=== PATIENT | male | born 1970 | race Caucasian/White ===

== ENCOUNTER 2016-09-09 07:36 | Emergency (ER) | payer OTHER ==
[2016-09-09] MEDS ORDERED: PROPARACAINE HCL 0.5% OP SOLN 15 ML BTL ONE (07:43)
[2016-09-09 07:44] VITALS: TEMP 37.2
[2016-09-09] MEDS ORDERED: CIPROFLOXACIN HCL 0.3% OP SOLN 2.5 ML BTL OP STA (08:09)
[2016-09-09] MEDS ORDERED: OXYCODONE/ACETAMINOPHEN 5-325 TAB PO ONE (08:15)
--- NOTE | 2016-09-09 08:19 | EMERGENCY ROOM VISIT NOTE ---
History Report prepared by Cullen: Arthur Penn Under the Supervision of: Dr. Donny Bermeo D.O. 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 He notes he woke with burning pain in his eyes bilaterally, and has been unable to open his eyes. 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 He has not had a recent cold or illness. He states his eyes have been tearing, and he has been using a warm compress on his eyes. He notes his pain is worsened with lights, and relieved with darkness. Source of History: patient Onset: about 4 hours ago Position: eye (bilateral) Quality: burning Timing: other (episode) Modifying Factors (Worsening): other (light) Modifying Factors (Relieving): other (darkness) Review of Systems See HPI for pertinent positives & negatives. A total of 10 systems reviewed and were otherwise negative. Family History No pertinent family history stated. Social History Smoking Status: Never Smoker Marital Status: Housing Status: lives with significant other Current/Historical Medications Scheduled PRN Oxycodone/Acetaminophen 5MG/325MG (Percocet 5MG/325MG), 1 TAB PO Q6H PRN for Pain Allergies Coded Allergies: No Known Allergies (Unverified , 09/09/16) Physical Exam Vital Signs Date Time Temp Pulse Resp B/P Pulse Ox O2 Delivery O2 Flow Rate FiO2 09/09/16 08:31 85 16 153/94 98 09/09/16 07:44 37.2 86 20 167/105 96 Room Air Physical Exam CONSTITUTIONAL/VITAL SIGNS: Reviewed / noted above. GENERAL: Non-toxic in appearance. INTEGUMENTARY: Warm, dry, and [place]. HEAD: Normocephalic. EYES: without scleral icterus or trauma. The patient has some photosensitivity and difficulty opening both eyes. There is a small amount of discharge noted in both eyes. There is bilateral conjunctival injection. The anterior chambers clear. The eyes were evaluated both with direct visualization as well as slit lamp exam. No foreign bodies are noted under the eyelids. There is minimal punctate fluorescein uptake under the highest magnification. X-ray of the motion is intact. There is no iritis. The patient's symptoms did resolve after proparacaine instillation to the eyes. ENT/OROPHARYNX: clear and moist. LYMPHADENOPATHY/NECK: Is supple without lymphadenopathy or meningismus. RESPIRATORY: Lungs clear and equal. CARDIOVASCULAR: Regular rate and rhythm. GI/ABDOMEN: Soft and nontender. No organomegaly or pulsatile mass. No rebound or guarding. Normal bowel sounds. EXTREMITIES: Warm and well perfused. BACK: No CVA tenderness. NEUROLOGICAL: Intact without focal deficits. PSYCHIATRIC: normal affect. MUSCULOSKELETAL: Normally developed with good muscle tone. TRIAGE NURSING DOCUMENTATION REVIEWED. Medical Decision & Procedures Medications Administered Medications (Trade) Dose Ordered Sig/Brynn Route Start Time Stop Time Status Last Admin Dose Admin Ciprofloxacin HCl (Ciprofloxacin 0.3% Op Soln) 1 drops NOW STAT OP 09/09/16 08:09 09/09/16 08:14 DC 09/09/16 08:33 1 DROPS Oxycodone/ Acetaminophen (Percocet 5-325mg Tab) 1 tab NOW ONCE PO 09/09/16 08:15 09/09/16 08:16 DC 09/09/16 08:33 1 TAB ED Course 0751: Previous medical records were reviewed. The patient was evaluated in room B7. A complete history and physical examination was performed. 0809: Ordered Ciprofloxacin HCl 1 drops OP. 0815: Ordered Oxycodone/Acetaminophen 1 tab PO. 0820: On reevaluation, the patient is doing well. I discussed the results and findings with the patient. He verbalized agreement of the treatment plan. The patient was discharged home. Medical Decision Differential includes conjunctivitis, viral versus bacterial, foreign body, acute angle-closure glaucoma, trauma. The patient's evaluation symptoms are suggestive of either a viral conjunctivitis or a bilateral ocular exposure. The patient does not wear contacts. He denies any specific exposure to his eyes. He will be placed on Ciloxan antibiotic eyedrops as well as Percocet for pain. Impression Primary Impression: Conjunctivitis of both eyes Scribe Attestation The scribe's documentation has been prepared under my direction and personally reviewed by me in its entirety. I confirm that the note above accurately reflects all work, treatment, procedures, and medical decision making performed by me. Departure Information Dispostion Home / Self-Care Prescriptions Oxycodone/Acetaminophen 5MG/325MG (PERCOCET 5MG/325MG) Tab 1 TAB PO Q6H Y for Pain, #20 TAB Prov: Donny Bermeo D.O. 09/09/16 Referrals Denny Dubois D.O. (PCP) Ok Garcia D.O. Patient Instructions Conjunctivitis, My [facility] Additional Instructions Ciloxan eyedrops: 1 drop to each eye every 2-3 hours while awake. Percocet as prescribed. No driving within 6 hours of use. Do not take additional Tylenol while taking Percocet. If symptoms do not resolve within 24-48 hours, follow up with an electronic security specialist. Dr. Garcia listed.
[2016-09-09] MEDS ORDERED: OXYC-57 PO (08:20)
[2016-09-09 08:31] VITALS: BP 153/94; PULSE 85; O2SAT 98
[2017-02-28] MEDS ORDERED: DXY100 PO (13:04)
[2017-02-28] MEDS ORDERED: NRN600 PO (13:04)
[2017-02-28] MEDS ORDERED: LCTX PO (13:04)
[2017-02-28] MEDS ORDERED: THM100 PO (13:04)
[2017-02-28] MEDS ORDERED: FLV400 PO (13:04)
== END 2016-09-09 08:35 | disposition home or self-care (01) ==
LOC: C.EDB 07:38
DX: H10.9 Unspecified conjunctivitis (principal)

== ENCOUNTER 2017-02-25 22:23 | Inpatient (IN) | payer OTHER ==
[~2017-02-25] VITALS: Ht 190.5 cm; Wt 69.8 kg
[~2017-02-25 22:23] MED LIST: OXYC-57 PO
--- NOTE | 2017-02-25 23:59 | EMERGENCY ROOM VISIT NOTE ---
History Report prepared by Cullen: Dmitry Brower Under the Supervision of: Dr. Jennifer Fay D.O. First contact with patient: 23:31 Chief Complaint: OTHER COMPLAINT Stated Complaint: BOTH LEGS FROM KNEES DOWN NO FEELING History of Present Illness The patient is a 46 year old male who presents to the Emergency Room with complaints of worsening intermittent pain and numbness from his knees to his ankles, and he states that it feels like pins and needles. The patient currently rates his discomfort as a 6/10 in severity. The patient states that he has had this pain for the past two years, though today it was worse, and he states that he always has some mild pain in his legs. He denies any pain or numbness in his feet. The patient states that the pain is worsened with standing. The patient states that the pain only lasts a couple of minutes at a time, and then it goes to baseline. He states that it is difficult to walk, though he has never fallen before. He denies any back pain, and he states that he currently has a mild headache. 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 The patient states that he does not feel that his muscles are wasting away. He states that he drinks a few beers per day, and he uses chewing tobacco. Additionally, he states that he does not have any pertinent family history that he knows of. Source of History: patient Onset: earlier today Position: leg (bilateral) Symptom Intensity: 6/10 Quality: numbness, other (pains and needles) Timing: intermittent Modifying Factors (Worsening): other (standing) Modifying Factors (Relieving): other (relaxing) Associated Symptoms: + headache, No back pain Review of Systems See HPI for pertinent positives & negatives. A total of 10 systems reviewed and were otherwise negative. Past Medical & Surgical Medical Problems: (1) Lower extremity weakness (2) Lyme disease (3) Neuropathy (4) No Known Active Medical Problems Family History Patient reports no known family medical history. Social History Smoking Status: Former Smoker Smokeless Tobacco Use: Yes Marital Status: Housing Status: lives with significant other Occupation Status: employed Current/Historical Medications No Active Prescriptions or Reported Meds Allergies Coded Allergies: No Known Allergies (Unverified , 7/25/17) Physical Exam Vital Signs Date Time Temp Pulse Resp B/P (MAP) Pulse Ox O2 Delivery O2 Flow Rate FiO2 02/26/17 02:55 71 18 142/88 97 Room Air 02/26/17 02:10 77 18 134/93 97 Room Air 02/26/17 00:21 71 18 137/83 97 Room Air 02/25/17 22:35 36.8 86 20 149/87 97 Room Air Physical Exam HEENT: Head - normocephalic and atraumatic. Pupils are equal, round, and reactive to light. Extraocular eye muscles are intact and sclera are anicteric. Ears - bilaterally patent canals with noninjected tympanic membranes and no evidence of hemotympanum. Nose - moist nasal mucosa without discharge. Mouth - moist buccal mucosa. Oropharynx is nonerythematous and there is no tonsillar exudate or edema noted. Neck: Supple; no JVD, nuchal rigidity, cervical lymphadenopathy, or auscultated bruits. Heart: Regular rate and rhythm. There is a normal S1 and S2 with no murmurs, clicks, or gallops appreciated. Lungs: Clear to auscultation bilaterally with no wheezes, rales, or rhonchi. Abdomen: Soft, completely nontender, nondistended, with good bowel sounds. There are no palpable pulsatile masses or hepatosplenomegaly. There is no guarding, rigidity, or rebound noted. Extremities: No evidence of cyanosis, clubbing, or edema. There are easily palpable peripheral pulses. Neuro: 0/4 patellar reflexes. 1/4 Achilles reflexes. The patient is awake and alert, oriented to day, time, and place. Muscle strength is 5/5 in all 4 extremities. The patient has equal pivot end polisher strength and equal pedal push and pull. There are no cerebellar signs. Medical Decision & Procedures ER Provider Diagnostic Interpretation: CT HEAD: As interpreted by stat rad No ICH, mass effect or edema. No evidence of acute cortical strokes. Visualized sinuses and mastoid air cells are clear. Laboratory Results 02/26/17 00:10 Test 02/26/17 00:10 Anion Gap 8.0 mmol/L (3-11) Est Creatinine Clear Calc Drug Dose 112.6 ml/min Estimated GFR () 122.8 Estimated GFR (Non- 106.0 BUN/Creatinine Ratio 11.3 (10-20) Calcium Level 8.7 mg/dl (8.5-10.1) Magnesium Level 2.1 mg/dl (1.8-2.4) Total Bilirubin 0.3 mg/dl (0.2-1) Direct Bilirubin 0.1 mg/dl (0-0.2) Aspartate Amino Transf (AST/SGOT) 20 U/L (15-37) Alanine Aminotransferase (ALT/SGPT) 32 U/L (12-78) Alkaline Phosphatase 83 U/L (45-117) Total Creatine Kinase 117 U/L (39-308) Total Protein 7.2 gm/dl (6.4-8.2) Albumin 3.7 gm/dl (3.4-5.0) Thyroid Stimulating Hormone (TSH) 1.580 uIu/ml (0.300-4.500) Ethyl Alcohol mg/dL 86.0 mg/dl (0-3) Lyme Disease IgG Antibody POS (NEG) Laboratory results per my review. Medications Administered Medications (Trade) Dose Ordered Sig/Brynn Route Start Time Stop Time Status Last Admin Dose Admin Ceftriaxone Sodium (Rocephin Inj) 1 gm NOW STAT IV 02/26/17 01:56 02/26/17 01:57 DC 02/26/17 02:10 1 GM Procedure Rocephin IV ED Course 2335: Past medical records reviewed. The patient was evaluated in room C3. A complete history and physical exam was performed. I asked the patient to walk. He could heel stand and toe stand, but he had significant imbalance with ambulation. The patient had an IV lock initiated and labs are drawn as above. The patient went for CT scan of the brain as described above. 0156: The Lyme testing was positive and he was treated with Rocephin Inj 1gm IV 0157: I reevaluated the patient, and he was doing well. 0206: I discussed the patient's case with Dr. Fischer, Hospitalist. He is going to evaluate the patient for further treatment. Medical Decision The patient is a 46 year old female who presents to the ED with right leg pain and numbness. Differential diagnosis includes intracranial process, alcoholic neuropathy, Guillain-Shelby syndrome, myasthenia gravis, lumbar radiculopathy, myositis, transverse myelitis. Lab results show: Lyme is positive, no leukocytosis, hemoglobin of 1.9, normal LFT and TSH, glucose 105, normal renal function, and alcohol was 86 This is a 46-year-old male patient who presents to the emergency department with a 2 year history of numbness and tingling in his legs between his knees and ankles and some pain of his knees, calves, and ankles. The patient presents to the emergency room tonight because he had an acute worsening of his symptoms over the past couple of days. As far as his chronic issue, he has no associated back pain. CT scan of the brain was unremarkable. The patient does abuse alcohol and I considered the possibility of neuropathy with in his legs. His symptoms have acutely worsened. His Lyme testing was positive. This could account for the acute worsening. I felt the patient will require IV Rocephin for positive Lyme disease with significant neurological sequelae. I discussed the case with the [facility] Hospitalist and they will evaluate him for further management. Medication Reconcilliation Current Medication List: was personally reviewed by me Blood Pressure Screening Patient's blood pressure: Elevated blood pressure It will be addressed as an inpatient Consults Time Called: [phone] Consulting Physician: Dr. Fischer, Hospitalist Returned Call: [phone] I discussed the patient's case with Dr. Fischer, Hospitalist. He is going to evaluate the patient for further treatment. Impression Primary Impression: Lyme disease Additional Impressions: Paresthesia of lower extremity Gait instability Scribe Attestation The scribe's documentation has been prepared under my direction and personally reviewed by me in its entirety. I confirm that the note above accurately reflects all work, treatment, procedures, and medical decision making performed by me. Departure Information Dispostion Being Evaluated By Hospitalist Prescriptions No Active Prescriptions or Reported Meds Referrals Denny Dubois S,Kristen.Dayanara. (PCP) Patient Instructions My [facility] Problem Qualifiers
[2017-02-26 00:31] LABS: BASO % 0.4 %; BASO ABS # 0.02 K/uL (0-0.2); COMPLETE YES; EOS % 2.2 %; HEMATOCRIT 40.4 % (42-52); IG% 0.2 %; LYMPH % 48.8 %; LYMPH ABS # 2.49 K/uL (1.2-3.4); MEAN CELL VOLUME 90.8 fL (80-100); MEAN CORPUSCULAR HEMOGLOBIN 31.2 pg (25-34); MEAN CORPUSCULAR HGB CONC 34.4 g/dl (32-36); MEAN PLATELET VOLUME 9.3 fL (7.4-10.4); MONO % 12.5 %; NEUT % 35.9 %; PLATELET COUNT 221 K/uL (130-400); RED BLOOD COUNT 4.45 M/uL (4.7-6.1)
[2017-02-26 00:54] LABS: BUN/CREATININE RATIO 11.3 (10-20); CALCIUM 8.7 mg/dl (8.5-10.1); CREATININE 0.85 mg/dl (0.60-1.40); POTASSIUM 3.6 mmol/L (3.5-5.1)
[2017-02-26 01:04] LABS: THYROID STIMULATING HORMONE 1.58 uIu/ml (0.300-4.500)
[2017-02-26 01:29] LABS: LYME DISEASE AB IGG POS (NEG); LYME DISEASE AB IGM POS (NEG)
[2017-02-26] MEDS ORDERED: CEFTRIAXONE SOD INJ 1 GM ADDVIAL IV STA (01:56)
[2017-02-26] MEDS ORDERED: POTASSIUM CHLORIDE 10 MEQ TABCR PO STA (03:51)
[2017-02-26] MEDS ORDERED: ACETAMINOPHEN 325 MG TAB PO PRN (04:00)
[2017-02-26] MEDS ORDERED: GABAPENTIN 600 MG TAB PO SCH (04:00)
[2017-02-26] MEDS ORDERED: LORAZEPAM 2 MG/ML 1 ML VIAL IV PRN (04:00)
[2017-02-26] MEDS ORDERED: IBUPROFEN 200 MG TAB PO PRN (04:00)
[2017-02-26] MEDS ORDERED: MoRPHine SULFATE 4 MG/ML 1 ML CARP\\VIAL IV PRN (04:00)
[2017-02-26] MEDS ORDERED: KETOROLAC TROMETHAMINE 30 MG/ML VIAL IV PRN (04:00)
[2017-02-26] MEDS ORDERED: ONDANSETRON INJ 2 MG/ML 2 ML VIAL IV PRN (04:00)
[2017-02-26] MEDS ORDERED: POTASSIUM CHLORIDE 10 MEQ TABCR ONE (04:07)
[2017-02-26 04:13] LABS: MAGNESIUM 2.1 mg/dl (1.8-2.4)
[2017-02-26 05:18] VITALS: BP 142/93; PULSE 75; TEMP 36.9; O2SAT 97
[2017-02-26 05:30] VITALS: BP 142/93; PULSE 75; TEMP 36.9; O2SAT 97; Ht 190.5 cm; Wt 69.8 kg
[2017-02-26] MEDS ORDERED: GABAPENTIN 1200MG LOADING DOSE PO ONE (06:00)
[2017-02-26] MEDS ORDERED: [UNRECOGNIZED DRUG - OTHER] IV ONE (06:15)
[2017-02-26] MEDS ORDERED: FOLIC ACID IV ONE (06:15)
[2017-02-26] MEDS ORDERED: THIAMINE HCL IV ONE (06:15)
[2017-02-26] MEDS ORDERED: MULTI VITAMIN INFUSION IV ONE (06:15)
--- NOTE | 2017-02-26 06:32 | HISTORY & PHYSICAL EXAMINATION ---
DATE OF ADMISSION: 02/25/2017 PRIMARY CARE DOCTOR: Dr. Dubois. (Px has not met him.) CHIEF COMPLAINT: Bilateral leg pain, numbness. HISTORY OF PRESENT ILLNESS: History from patient and family. Medical history significant for past tobacco abuse. As per patient, in the last 2 years, pain and numbness from the knees to the ankles, feels like pins and needles, no chest pain, no shortness of breath, no headache. Some pain with walking. No consultations done. Worsening discomfort last few days. Patient has had tick bites before, no previous treatments, no recent rash. Patient brought to Emergency Room. Lyme test found to be abnormal. IV Ceftriaxone given in the Emergency Room. MEDICAL HISTORY: As above. SURGERIES: Wound repair surgery. HOME MEDICATIONS: None. ALLERGIES: No known drug allergies. FAMILY HISTORY: Hypertension. PERSONAL AND SOCIAL HISTORY: Past tobacco abuse, daily alcohol intake/denies abuse. Construction business. REVIEW OF SYSTEMS: As per HPI. All other ROS negative. PHYSICAL EXAMINATION: VITAL SIGNS: Blood pressure was noted to be 149/87, pulse rate 86, RR 20, temperature 36.8, sats 97 on room air. GENERAL: Noted to be slightly anxious, no respiratory distress. SKIN: Normal color. HEENT: Partial alopecia. Rake palpebral conjunctivae. Dry mucosa. NECK: No JVD. Supple CHEST: Clear to auscultation. HEART: Regular rate and rhythm. ABDOMEN: Soft. EXTREMITIES: No edema, tenderness. NEUROLOGIC: No gross focality. LABS: Hemoglobin 13.9, hematocrit 40, white cell count 5.6, platelets 220. Sodium 141, potassium 3.5, chloride 107, CO2 20, BUN 10, creatinine 0.8, glucose was 100. ETOH level 86. Lyme test, IgG, IgM antibody positive. CT head, no acute pathology as per initial read . ASSESSMENT: 1. Worsening lower extremity pain of two years' duration likely peripheral neuropathy on basis px description ? secondary to alcohol, ? infection (? Lyme, although lower extremity involvement somewhat uncommon for Lyme neuropathy) Rule out deep venous thrombosis. 2. Abnormal Lyme test. 3. Past tobacco abuse. 4. daily ETOH intake PLAN: [facility] Neuropathy workup Neurology consult RE lower extremity numbness, pain. LE dopplers ro DVT. ID consult, abnormal Lyme. IV ceftriaxone for now for abn Lyme test. DT precautions. DVT prophylaxis with Lovenox subQ. Full code. MTDD
--- NOTE | 2017-02-26 06:54 | DIAGNOSTIC IMAGING REPORT ---
CT OF THE HEAD WITHOUT CONTRAST CLINICAL HISTORY: Lower extremity numbness. COMPARISON STUDY: No previous studies for comparison. CT DOSE: 537.48 mGy.cm TECHNIQUE: Helical axial images of the head were obtained without IV contrast. Automated exposure control was utilized for the study. A dose lowering technique was utilized adhering to the principles of ALARA. FINDINGS: No acute intracranial hemorrhage, midline shift or mass effect is present. Ventricular system is normal. The basilar cisterns are patent. There are no extra-axial collections. There are no findings to suggest acute dural sinus thrombosis or acute territorial infarct. There are no significant calvarial abnormalities. There is mild mucosal thickening of the sinuses. Mastoid air cells are clear. IMPRESSION: No acute intracranial findings. Electronically signed by: Yoshi Hollingsworth M.D. 02/26/2017 6:52 AM Dictated Date/Time: 02/26/2017 6:51 AM
--- NOTE | 2017-02-26 07:18 | DIAGNOSTIC IMAGING REPORT ---
BILATERAL LOWER EXTREMITY VENOUS DOPPLER CLINICAL HISTORY: Lower extremity numbness. COMPARISON STUDY: No previous studies for comparison. TECHNIQUE: Sonography of the deep venous system of the bilateral lower extremities was performed. Compression and augmentation were evaluated. FINDINGS: The bilateral common femoral, superficial femoral and popliteal veins were compressible. Augmentation was normal. Flow was shown within the deep calf vessels. IMPRESSION: No evidence of deep venous thrombus within the bilateral lower extremities. Electronically signed by: Yoshi Hollingsworth M.D. 02/26/2017 7:16 AM Dictated Date/Time: 02/26/2017 7:16 AM
[2017-02-26 07:34] VITALS: BP 138/88; PULSE 59; TEMP 36.8; O2SAT 98
[2017-02-26 09:49] VITALS: O2SAT 98
--- NOTE | 2017-02-26 10:16 | Medical Consult ---
Consultation Date of Consultation: Feb 26, 2017. Attending Physician: Amalia Bauman M.D. Reason for Consultation: Abn Lyme History of Present Illness Patient is a 46-year-old male who presented the emergency department with complaints of increasing numbness and pain from the knees down. The patient states that he has had numbness and pain of from his knees to his ankles bilaterally for approximately 2 years, but he feels that it has acutely worsened. The patient states that he feels that started after a trip to [place], but is uncertain as to why. He did not experience any trauma or recognize any inciting event. The patient states that the pain is worse with standing and walking, and that it is intermittent. The patient states that he has had on an off mild headache, but otherwise complains of no vision changing, hearing changes, back pain, neck pain, radiating pain, shortness of breath, nausea, vomiting, diarrhea, abdominal pain, urinary symptoms, urinary retention , or peripheral edema. Since admission, the patient did have a CT scan of the head which showed no intracranial abnormality. Venous Doppler studies of the bilateral extremities showed no DVT. White blood cell count on admission was 5.10. ESR was 2. His C-reactive protein was less than 0.29. TSH was within normal. Creatinine was 0.85. Lyme screens were positive. Western blot is pending. RPR is pending. Neurology evaluation is also pending. Past Medical/Surgical History Medical Problems: (1) Conjunctivitis of both eyes Status: Acute (2) Gait instability Status: Acute (3) Paresthesia of lower extremity Status: Acute Medical Problems: (1) Lower extremity weakness (2) Lyme disease (3) Neuropathy (4) No Known Active Medical Problems Family History Patient reports no known family medical history. Noncontributory Social History Smoking Status: Never Smoker Smokeless Tobacco Use: Yes Marital Status: Housing Status: lives with significant other Occupation Status: employed Allergies Coded Allergies: No Known Allergies (Unverified , 02/26/17) Home Medications Reported Home Medications Medications Dose Route/Sig Max Daily Dose Days Date Category No Active Prescriptions or Reported Medications Rx Current Inpatient Medications Current Inpatient Medications Medications (Trade) Dose Ordered Sig/Brynn Route Start Time Stop Time Status Last Admin Dose Admin Ceftriaxone Sodium 1 gm/ Dextrose 50 ml @ 100 mls/hr Q24H IV 02/26/17 22:00 03/07/17 21:59 Multivitamins 10 ml/Thiamine HCl 100 mg/Folic Acid 1 mg/Lactated Ringer's 1,011.2 ml @ 75 mls/hr [id number] ONCE IV 02/26/17 06:15 02/26/17 19:43 02/26/17 06:35 75 MLS/HR Thiamine HCl (Vitamin B-1 Tab) 100 mg QAM PO 02/27/17 09:00 03/29/17 08:59 Multivitamins (Flintstones Complete Tab) 1 tab QAM PO 02/27/17 09:00 03/29/17 08:59 Folic Acid (Folvite Tab) 400 mcg QAM PO 02/27/17 09:00 03/29/17 08:59 Enoxaparin Sodium (Lovenox Inj) 40 mg Q24H SQ 02/26/17 09:00 03/28/17 08:59 Acetaminophen (Tylenol Tab) 650 mg Q4H PRN PO 02/26/17 04:00 03/28/17 03:59 02/26/17 06:02 650 MG Lorazepam (Ativan Inj) PRN Dosing -Active Protocol Q1H PRN IV 02/26/17 04:00 03/28/17 03:59 Ibuprofen (Advil Tab) 400 mg Q6H PRN PO 02/26/17 04:00 03/28/17 03:59 Oxycodone/ Acetaminophen (Percocet 5-325mg Tab) 1 tab Q6H PRN PO 02/26/17 04:00 03/12/17 03:59 Ketorolac Tromethamine (Toradol Inj) 30 mg Q6H PRN IV 02/26/17 04:00 03/03/17 03:59 Morphine Sulfate (MoRPHine SULFATE INJ) 4 mg Q6H PRN IV 02/26/17 04:00 03/12/17 03:59 Ondansetron HCl (Zofran Inj) 4 mg Q6H PRN IV 02/26/17 04:00 03/28/17 03:59 Gabapentin (Neurontin Tab) 600 mg Q6H PO 02/26/17 12:00 02/26/17 18:01 Gabapentin (Neurontin Tab) 600 mg Q8H PO 02/27/17 06:00 02/27/17 22:01 Gabapentin (Neurontin Tab) 600 mg Q12H PO 02/28/17 10:00 02/28/17 22:01 Gabapentin (Neurontin Tab) 600 mg Q24H PO 03/01/17 22:00 03/01/17 22:01 Review of Systems Constitutional: No fever, No chills, No sweats, No weakness, No fatigue Eyes: No worsening of vision, No eye pain, No diplopia ENT: No hearing loss, No sore throat, No tinnitus Respiratory: No cough, No sputum, No wheezing, No shortness of breath Cardiovascular: No chest pain, No palpitations Abdomen: No pain, No nausea, No vomiting, No diarrhea Musculoskeletal: + problem reported (numbness/tingling/sharp pains from knees to feet, bilateral. No back pain, neck pain, headache), No joint pain Genitourinary - Male: + problem reported (no inguinal lymph nodes that he has noticed), No hematuria, No dysuria, No urinary frequency, No urinary retention Neurologic: + numbness/tingling (as above- nowhere else) Endocrine: No fatigue Hematologic / Lymphatic: No swollen lymph nodes Integumentary: No rash, No itch, No new/changing skin lesions, No color change Physical Exam Date Time Temp Pulse Resp B/P (MAP) Pulse Ox O2 Delivery O2 Flow Rate FiO2 02/26/17 09:49 98 Room Air 02/26/17 07:34 36.8 59 18 138/88 (105) 98 Room Air 02/26/17 05:30 36.9 75 20 142/93 97 Room Air 02/26/17 05:18 36.9 75 20 142/93 (109) 97 Room Air 02/26/17 04:38 72 18 142/88 96 02/26/17 02:55 71 18 142/88 97 Room Air 02/26/17 02:10 77 18 134/93 97 Room Air 02/26/17 00:21 71 18 137/83 97 Room Air 02/25/17 22:35 36.8 86 20 149/87 97 Room Air General Appearance: WD/WN, no apparent distress Head: normocephalic, atraumatic Eyes: normal inspection, sclerae normal ENT: hearing grossly normal Neck: supple, trachea midline Respiratory/Chest: chest non-tender, normal breath sounds, no respiratory distress, no accessory muscle use, + wheezing (very mild end expiratory wheeze right lower lobe- otherwise clear) Cardiovascular: regular rate, rhythm, no murmur Abdomen/GI: normal bowel sounds, non tender, soft, no organomegaly Back: normal inspection Extremities/Musculoskelatal: normal inspection, no calf tenderness, no pedal edema Neurologic/Psych: alert, normal mood/affect, oriented x 3 Skin: normal color, warm/dry, no rash Laboratory Results Last 24 Hours Test 02/26/17 00:10 02/26/17 06:13 White Blood Count 5.10 K/uL Red Blood Count 4.45 M/uL Hemoglobin 13.9 g/dL Hematocrit 40.4 % Mean Corpuscular Volume 90.8 fL Mean Corpuscular Hemoglobin 31.2 pg Mean Corpuscular Hemoglobin Concent 34.4 g/dl Platelet Count 221 K/uL Mean Platelet Volume 9.3 fL Neutrophils (%) (Auto) 35.9 % Lymphocytes (%) (Auto) 48.8 % Monocytes (%) (Auto) 12.5 % Eosinophils (%) (Auto) 2.2 % Basophils (%) (Auto) 0.4 % Neutrophils # (Auto) 1.83 K/uL Lymphocytes # (Auto) 2.49 K/uL Monocytes # (Auto) 0.64 K/uL Eosinophils # (Auto) 0.11 K/uL Basophils # (Auto) 0.02 K/uL RDW Standard Deviation 41.7 fL RDW Coefficient of Variation 12.5 % Immature Granulocyte % (Auto) 0.2 % Immature Granulocyte # (Auto) 0.01 K/uL Sodium Level 141 mmol/L Potassium Level 3.6 mmol/L Chloride Level 107 mmol/L Carbon Dioxide Level 26 mmol/L Anion Gap 8.0 mmol/L Blood Urea Nitrogen 10 mg/dl Creatinine 0.85 mg/dl Est Creatinine Clear Calc Drug Dose 112.6 ml/min Estimated GFR () 122.8 Estimated GFR (Non- 106.0 BUN/Creatinine Ratio 11.3 Random Glucose 105 mg/dl Calcium Level 8.7 mg/dl Magnesium Level 2.1 mg/dl Total Bilirubin 0.3 mg/dl Direct Bilirubin 0.1 mg/dl Aspartate Amino Transf (AST/SGOT) 20 U/L Alanine Aminotransferase (ALT/SGPT) 32 U/L Alkaline Phosphatase 83 U/L Total Creatine Kinase 117 U/L Total Protein 7.2 gm/dl Albumin 3.7 gm/dl Thyroid Stimulating Hormone (TSH) 1.580 uIu/ml Ethyl Alcohol mg/dL 86.0 mg/dl Lyme Disease IgG Antibody POS Lyme Disease IgM Antibody POS Prothrombin Time 11.0 SECONDS Prothromb Time International Ratio 1.0 Vitamin B12 Level 324 pg/mL Folate 21.23 ng/mL Assessment & Plan Patient with B/L Neuropathy of the lower extremities from the knees to feet along with positive Lyme screens. The patient has no other neurologic symptoms and has not had symptoms consistent with Lyme disease otherwise- therefore, not overly convinced of Lyme disease causing current symptoms, but will await further serology and Neurology's evaluation. Will also check ESR, CRP. We will follow. PROVIDER ADDENDUM: Patient examined and reviewed with MARIA DE JESUS.agree with above assessment.
[2017-02-26] MEDS: GABAPENTIN 600MG Q6H DOSE PO SCH ×2 (12:12→17:38)
[2017-02-26] MEDS: ENOXAPARIN 40 MG/0.4 ML SYR SQ SCH (12:13)
[2017-02-26 12:41] LABS: URINE APPEARANCE CLEAR (CLEAR); URINE BILIRUBIN NEG (NEG); URINE COLOR YELLOW; URINE NITRITE NEG (NEG); URINE PH 6.5 (4.5-7.5); URINE SPECIFIC GRAVITY 1.008 (1.000-1.030); UROBILINOGEN NEG (NEG); ZZUR CULT IF INDIC CLEAN CATCH NO
[2017-02-26 12:47] LABS: MANUAL MICROSCOPIC REQUIRED? NO; REVIEW REQ? NO
[2017-02-26 15:15] VITALS: BP 137/87; PULSE 66; TEMP 37.1; O2SAT 98
--- NOTE | 2017-02-26 15:25 | Progress Note ---
Internal Med Progress Note Date of Service: Feb 26, 2017. Provider Documentation: SUBJECTIVE: The patient was seen and examined Complains of bilateral leg numbness below the knees Symptoms are worse for the last few days but has been going on for >2 years Denies any other symptoms OBJECTIVE: Vital Signs-as noted below Exam: General-No distress at rest Eyes-normal ENT-normal Neck-supple Lungs-Clear to ausucltate bilaterally Heart-Regular,no murmur Abdomen-Benign,no masses,bowel sound present Extremities-No edema Neuro-AAOx3 Impaired sensation bilaterally below knees Lab data as noted below. 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 No B12 and or Folate Deficiency Appreciate ID input Will await Neurology input Still remains symptomatic Past tobacco abuse Alcohol Abuse DT precautions. DVT prophylaxis with Lovenox subQ. Full code. Vital Signs: Date Time Temp Pulse Resp B/P (MAP) Pulse Ox O2 Delivery O2 Flow Rate FiO2 02/26/17 09:49 98 Room Air 02/26/17 07:34 36.8 59 18 138/88 (105) 98 Room Air 02/26/17 05:30 36.9 75 20 142/93 97 Room Air 02/26/17 05:18 36.9 75 20 142/93 (109) 97 Room Air 02/26/17 04:38 72 18 142/88 96 02/26/17 02:55 71 18 142/88 97 Room Air 02/26/17 02:10 77 18 134/93 97 Room Air 02/26/17 00:21 71 18 137/83 97 Room Air 02/25/17 22:35 36.8 86 20 149/87 97 Room Air Lab Results: Results Past 24 Hours Test 02/26/17 00:10 02/26/17 06:13 02/26/17 12:10 Range/Units White Blood Count 5.10 4.8-10.8 K/uL Red Blood Count 4.45 4.7-6.1 M/uL Hemoglobin 13.9 14.0-18.0 g/dL Hematocrit 40.4 42-52 % Mean Corpuscular Volume 90.8 80-100 fL Mean Corpuscular Hemoglobin 31.2 25-34 pg Mean Corpuscular Hemoglobin Concent 34.4 32-36 g/dl Platelet Count 221 130-400 K/uL Mean Platelet Volume 9.3 7.4-10.4 fL Neutrophils (%) (Auto) 35.9 % Lymphocytes (%) (Auto) 48.8 % Monocytes (%) (Auto) 12.5 % Eosinophils (%) (Auto) 2.2 % Basophils (%) (Auto) 0.4 % Neutrophils # (Auto) 1.83 1.4-6.5 K/uL Lymphocytes # (Auto) 2.49 1.2-3.4 K/uL Monocytes # (Auto) 0.64 0.11-0.59 K/uL Eosinophils # (Auto) 0.11 0-0.5 K/uL Basophils # (Auto) 0.02 0-0.2 K/uL RDW Standard Deviation 41.7 36.4-46.3 fL RDW Coefficient of Variation 12.5 11.5-14.5 % Immature Granulocyte % (Auto) 0.2 % Immature Granulocyte # (Auto) 0.01 0.00-0.02 K/uL Sodium Level 141 136-145 mmol/L Potassium Level 3.6 3.5-5.1 mmol/L Chloride Level 107 98-107 mmol/L Carbon Dioxide Level 26 21-32 mmol/L Anion Gap 8.0 3-11 mmol/L Blood Urea Nitrogen 10 7-18 mg/dl Creatinine 0.85 0.60-1.40 mg/dl Est Creatinine Clear Calc Drug Dose 112.6 ml/min Estimated GFR () 122.8 Estimated GFR (Non- 106.0 BUN/Creatinine Ratio 11.3 10-20 Random Glucose 105 70-99 mg/dl Calcium Level 8.7 8.5-10.1 mg/dl Magnesium Level 2.1 1.8-2.4 mg/dl Total Bilirubin 0.3 0.2-1 mg/dl Direct Bilirubin 0.1 0-0.2 mg/dl Aspartate Amino Transf (AST/SGOT) 20 15-37 U/L Alanine Aminotransferase (ALT/SGPT) 32 12-78 U/L Alkaline Phosphatase 83 45-117 U/L Total Creatine Kinase 117 39-308 U/L Total Protein 7.2 6.4-8.2 gm/dl Albumin 3.7 3.4-5.0 gm/dl Thyroid Stimulating Hormone (TSH) 1.580 0.300-4.500 uIu/ml Ethyl Alcohol mg/dL 86.0 0-3 mg/dl Lyme Disease IgG Antibody POS NEG Lyme Disease IgM Antibody POS NEG Erythrocyte Sedimentation Rate 2 0-14 mm/hr Prothrombin Time 11.0 9.0-12.0 SECONDS Prothromb Time International Ratio 1.0 0.9-1.1 C-Reactive Protein < 0.29 0-0.29 mg/dl Vitamin B12 Level 324 211-911 pg/mL Folate 21.23 >5.38 ng/mL Urine Color YELLOW Urine Appearance CLEAR CLEAR Urine pH 6.5 4.5-7.5 Urine Specific [place] 1.008 1.000-1.030 Urine Protein NEG NEG Urine Glucose (UA) NEG NEG Urine Ketones NEG NEG Urine Occult Blood NEG NEG Urine Nitrite NEG NEG Urine Bilirubin NEG NEG Urine Urobilinogen NEG NEG Urine Leukocyte Esterase NEG NEG
--- NOTE | 2017-02-26 16:03 | Neurology Consultation ---
Neurology Consultation Date of Consultation: Feb 26, 2017. Attending Physician: Amalia Bauman M.D. Primary Care Physician: Denny Dubois D.O. Reason for Consultation: neuropathy? History of Present Illness Source: patient, spouse Poornima states for the past 2 years, pain and numbness from the knees to the ankles,feels like pins and needles, no chest pain, no shortness of breath, no headache. He is unstable with walking. 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 he has had numerous tick bites over the years. he is a 6 pack a day beer drinker for many years, and chews snuff. he has not other medical issues. denies CP, SOB, abdominal pain, headache, swallowing issues, bowel or bladder symptoms, N, V. Past Medical/Surgical History Medical Problems: (1) Conjunctivitis of both eyes Status: Acute (2) Gait instability Status: Acute (3) Paresthesia of lower extremity Status: Acute Social History Smoking Status: Former smoker Smokeless Tobacco Use: Yes Alcohol Use: heavy Drug Use: none Marital Status: Housing Status: lives with significant other Occupation Status: employed Allergies Coded Allergies: No Known Allergies (Unverified , 02/26/17) Current Inpatient Medications Current Inpatient Medications Medications (Trade) Dose Ordered Sig/Brynn Route Start Time Stop Time Status Last Admin Dose Admin Ceftriaxone Sodium 1 gm/ Dextrose 50 ml @ 100 mls/hr Q24H IV 02/26/17 22:00 03/07/17 21:59 Multivitamins 10 ml/Thiamine HCl 100 mg/Folic Acid 1 mg/Lactated Ringer's 1,011.2 ml @ 75 mls/hr [id number] ONCE IV 02/26/17 06:15 02/26/17 19:43 02/26/17 06:35 75 MLS/HR Thiamine HCl (Vitamin B-1 Tab) 100 mg QAM PO 02/27/17 09:00 03/29/17 08:59 Multivitamins (Flintstones Complete Tab) 1 tab QAM PO 02/27/17 09:00 03/29/17 08:59 Folic Acid (Folvite Tab) 400 mcg QAM PO 02/27/17 09:00 03/29/17 08:59 Enoxaparin Sodium (Lovenox Inj) 40 mg Q24H SQ 02/26/17 09:00 03/28/17 08:59 02/26/17 12:13 40 MG Acetaminophen (Tylenol Tab) 650 mg Q4H PRN PO 02/26/17 04:00 03/28/17 03:59 02/26/17 06:02 650 MG Lorazepam (Ativan Inj) PRN Dosing -Active Protocol Q1H PRN IV 02/26/17 04:00 03/28/17 03:59 Ibuprofen (Advil Tab) 400 mg Q6H PRN PO 02/26/17 04:00 03/28/17 03:59 Oxycodone/ Acetaminophen (Percocet 5-325mg Tab) 1 tab Q6H PRN PO 02/26/17 04:00 03/12/17 03:59 Ketorolac Tromethamine (Toradol Inj) 30 mg Q6H PRN IV 02/26/17 04:00 03/03/17 03:59 Morphine Sulfate (MoRPHine SULFATE INJ) 4 mg Q6H PRN IV 02/26/17 04:00 03/12/17 03:59 Ondansetron HCl (Zofran Inj) 4 mg Q6H PRN IV 02/26/17 04:00 03/28/17 03:59 Gabapentin (Neurontin Tab) 600 mg Q6H PO 02/26/17 12:00 02/26/17 18:01 02/26/17 12:12 600 MG Gabapentin (Neurontin Tab) 600 mg Q8H PO 02/27/17 06:00 02/27/17 22:01 Gabapentin (Neurontin Tab) 600 mg Q12H PO 02/28/17 10:00 02/28/17 22:01 Gabapentin (Neurontin Tab) 600 mg Q24H PO 03/01/17 22:00 03/01/17 22:01 Physical Exam Vital Signs (Past 24 Hrs): Date Time Temp Pulse Resp B/P (MAP) Pulse Ox O2 Delivery O2 Flow Rate FiO2 02/26/17 15:15 37.1 66 18 137/87 (104) 98 Room Air 02/26/17 09:49 98 Room Air 02/26/17 07:34 36.8 59 18 138/88 (105) 98 Room Air 02/26/17 05:30 36.9 75 20 142/93 97 Room Air 02/26/17 05:18 36.9 75 20 142/93 (109) 97 Room Air 02/26/17 04:38 72 18 142/88 96 02/26/17 02:55 71 18 142/88 97 Room Air 02/26/17 02:10 77 18 134/93 97 Room Air 02/26/17 00:21 71 18 137/83 97 Room Air 02/25/17 22:35 36.8 86 20 149/87 97 Room Air Physical Exam: Constitutional: appearance nourished, healthy and normal Ears, Nose, Mouth and Throat: mucous membranes moist, no injection and skin normal, eyes normal Cardiovascular: normal S-1 and S-2 and regular rate and rhythm Respiratory: clear to auscultation (CTA) and no rales, rhonchi or wheeze Musculoskeletal: no peripheral edema and good distal pulses Skin: no stigmata of neurocutaneous disease noted and normal and intact Eyes: extraocular muscles intact (EOMI) and pupils equal, round and reactive to light (PERRL) NEUROLOGIC EXAMINATION: Mental status: Alert and interactive Oriented to full date and location Oriented to person Speech fluent with no evidence of aphasia Cranial Nerves smile eye brow raise symmetric Reflexes: Deep tendon reflexes hyporeflexic LE. Plantar responses were flexor. Sensory: decreased sensation to vibration bilateral knee to avendaño, intact ankle to toes, proprioception GT intact Coordination: Romberg present with eyes open Gait/Stance: Posture normal. difficulty rising from bed. stands stable with feet 3 ft apart Motor: Negative for pronator drift of out stretched arms with eyes closed. Strength: biceps triceps hand net application support specialist 5/5 bilateral, hip flex 5/5 bilaterally plantar flex 5/ 5 Laboratory Results Past 24 Hours: 02/26/17 00:10 Red Blood Count 4.45, Mean Corpuscular Volume 90.8, Mean Corpuscular Hemoglobin 31.2, Mean Corpuscular Hemoglobin Concent 34.4, Mean Platelet Volume 9.3, Neutrophils (%) (Auto) 35.9, Lymphocytes (%) (Auto) 48.8, Monocytes (%) (Auto) 12.5, Eosinophils (%) (Auto) 2.2, Basophils (%) (Auto) 0.4, Neutrophils # (Auto ) 1.83, Lymphocytes # (Auto) 2.49, Monocytes # (Auto) 0.64, Eosinophils # (Auto ) 0.11, Basophils # (Auto) 0.02 02/26/17 00:10 Test 02/26/17 00:10 02/26/17 06:13 02/26/17 12:10 White Blood Count 5.10 K/uL (4.8-10.8) Red Blood Count 4.45 M/uL (4.7-6.1) Hemoglobin 13.9 g/dL (14.0-18.0) Hematocrit 40.4 % (42-52) Mean Corpuscular Volume 90.8 fL (80-100) Mean Corpuscular Hemoglobin 31.2 pg (25-34) Mean Corpuscular Hemoglobin Concent 34.4 g/dl (32-36) Platelet Count 221 K/uL (130-400) Mean Platelet Volume 9.3 fL (7.4-10.4) Neutrophils (%) (Auto) 35.9 % Lymphocytes (%) (Auto) 48.8 % Monocytes (%) (Auto) 12.5 % Eosinophils (%) (Auto) 2.2 % Basophils (%) (Auto) 0.4 % Neutrophils # (Auto) 1.83 K/uL (1.4-6.5) Lymphocytes # (Auto) 2.49 K/uL (1.2-3.4) Monocytes # (Auto) 0.64 K/uL (0.11-0.59) Eosinophils # (Auto) 0.11 K/uL (0-0.5) Basophils # (Auto) 0.02 K/uL (0-0.2) RDW Standard Deviation 41.7 fL (36.4-46.3) RDW Coefficient of Variation 12.5 % (11.5-14.5) Immature Granulocyte % (Auto) 0.2 % Immature Granulocyte # (Auto) 0.01 K/uL (0.00-0.02) Anion Gap 8.0 mmol/L (3-11) Est Creatinine Clear Calc Drug Dose 112.6 ml/min Estimated GFR () 122.8 Estimated GFR (Non- 106.0 BUN/Creatinine Ratio 11.3 (10-20) Calcium Level 8.7 mg/dl (8.5-10.1) Magnesium Level 2.1 mg/dl (1.8-2.4) Total Bilirubin 0.3 mg/dl (0.2-1) Direct Bilirubin 0.1 mg/dl (0-0.2) Aspartate Amino Transf (AST/SGOT) 20 U/L (15-37) Alanine Aminotransferase (ALT/SGPT) 32 U/L (12-78) Alkaline Phosphatase 83 U/L (45-117) Total Creatine Kinase 117 U/L (39-308) Total Protein 7.2 gm/dl (6.4-8.2) Albumin 3.7 gm/dl (3.4-5.0) Thyroid Stimulating Hormone (TSH) 1.580 uIu/ml (0.300-4.500) Ethyl Alcohol mg/dL 86.0 mg/dl (0-3) Lyme Disease IgG Antibody POS (NEG) Erythrocyte Sedimentation Rate 2 mm/hr (0-14) Prothrombin Time 11.0 SECONDS (9.0-12.0) Prothromb Time International Ratio 1.0 (0.9-1.1) C-Reactive Protein < 0.29 mg/dl (0-0.29) Vitamin B12 Level 324 pg/mL (211-911) Folate 21.23 ng/mL (>5.38) Urine Color YELLOW Urine Appearance CLEAR (CLEAR) Urine pH 6.5 (4.5-7.5) Urine Specific [place] 1.008 (1.000-1.030) Urine Protein NEG (NEG) Urine Glucose (UA) NEG (NEG) Urine Ketones NEG (NEG) Urine Occult Blood NEG (NEG) Urine Nitrite NEG (NEG) Urine Bilirubin NEG (NEG) Urine Urobilinogen NEG (NEG) Urine Leukocyte Esterase NEG (NEG) Imaging CT head- No acute intracranial findings Impression 46 year old male with gait instability Plan 1. watch for DTs -heavy EtOH abuse 2. MRI brain, whole spine with and without contrast to r/o syrinx or other abnormalities 3. EMG as out patient 4. ID for treatment of Lyme 5. PT/OT for discharge needs 6. further recommendations after imaging I have seen and discussed above patient with Dr Conrado Love, neurology I have seen this man examined him and have reviewed his labs and discussed his findings with Danielle Daniel He clearly has a heavy etoh consumption history and has not had any medical follow up or attention and now presents with two yars of gait disturbance atypical bilateral anterior compartment leg pain and "numbness" with possible subacute decline over the past several days to weeks and a positive lyme screen. 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 coupled with minimal signs of a significant polyneuropathy and a very odd distribution of sensory loss in the legs between the knees and ankles sparing his feet and upper extremities I doubt that the lyme antibody issue explains his chronic problems but it could of course explain perhaps a recent step off in overall leg function We need a brain mri to get a better feel for any vermian atrophy and panspinal imaging to evaluate for entities such as a distal thoracic syrinx that might explain his unusual sensory findings which are not due to a clear cut polyneuropathy He may well need csf analysis as well and obviously continued observation for progression of deficits as a post infectious non painful sensory poly radiculopathy could present in a similar fashion Leonidas problem here is dissecting the chronic issues from potentially treatable subacute ones and the history is not currently helpful in achieving this Continue rx for etoh related issues and for dt prevention Neurontin may help both the pain and the dt prevention Conrado Love MD
--- NOTE | 2017-02-26 20:58 | DIAGNOSTIC IMAGING REPORT ---
ORBITS FOR MRI CLINICAL HISTORY: 46 years-old Male presenting with HX OF METAL REMOVED FROM EYES. TECHNIQUE: 3 views of the orbits were obtained. COMPARISON: CT head from 02/26/2017. FINDINGS: No metallic foreign body projects over the orbits. Amalgam noted. Paranasal sinuses clear. No acute fracture is evident. IMPRESSION: No metallic foreign body in the orbits to preclude MRI. Electronically signed by: Oseas Singer M.D. 02/26/2017 8:57 PM Dictated Date/Time: 02/26/2017 8:56 PM
[2017-02-27] MEDS ORDERED: GADAVIST IV PRN
[2017-02-27] MEDS: CEFTRIAXONE SOD INJ 1 GM in DEXTROSE 5% ADD-VANTAGE 50ML 50 ML IV SCH ×2 (01:07→21:02)
[2017-02-27] MEDS: OXYCODONE/ACETAMINOPHEN 5-325 TAB PO PRN ×2 (01:07→09:04)
[2017-02-27 01:30] VITALS: O2SAT 98
[2017-02-27] MEDS: GABAPENTIN 600MG Q8H DOSE PO SCH ×3 (05:52→21:01)
--- NOTE | 2017-02-27 06:43 | DIAGNOSTIC IMAGING REPORT ---
LUMBAR SPINE COMBINATION HISTORY: Pain. Neuropathy. gait ataxia with instability TECHNIQUE: Multiplanar multisequence MRI of the lumbar spine was performed both before and after the intravenous administration of contrast. COMPARISON: None. FINDINGS: For the purpose of the report the L5-S1 disc space will be located on axial image 27 of 30. Mild disc desiccation. Normal signal characteristics of the vertebral bodies. No abnormal postcontrast sagittal enhancement area no evidence for syrinx. L1-L2: No significant central canal or neural foraminal narrowing. L2-L3: No significant central canal or neural foraminal narrowing. L3-L4: No significant central canal or neural foraminal narrowing. L4-L5: Minimal disc bulge. No significant impact with the thecal sac. L5-S1: Minimal disc bulge. No significant impact on the thecal sac or neural elements. IMPRESSION: Minimal disc bulges L4-L5 and L5-S1 Otherwise negative study no evidence for postcontrast enhancement The above report was generated using voice recognition software. It may contain grammatical, syntax or spelling errors. Electronically signed by: Jonnie Cantu M.D. 02/27/2017 6:42 AM Dictated Date/Time: 02/27/2017 6:35 AM
--- NOTE | 2017-02-27 06:52 | DIAGNOSTIC IMAGING REPORT ---
CERVICAL SPINE COMBO HISTORY: Neuropathy. gait ataxia with instability TECHNIQUE: Multiplanar multisequence MRI of the cervical spine was performed both before and after the use of intravenous contrast. COMPARISON STUDY: None. FINDINGS: Normal signal characteristics of the vertebral bodies. Mild disc desiccation throughout. Slight disc bulges C4-C5 and C5-C6 based on the sagittal images. No abnormal postcontrast sagittal enhancement C2-C3: No significant central canal or neural foraminal narrowing. C3-C4: No significant central canal or neural foraminal narrowing. C4-C5: Mild broad-based disc bulge. Contact with but no significant deformity or displacement of the cervical cord. Moderate narrowing of the neuroforamina bilaterally C5-C6: Mild broad-based disc bulge. Moderate narrowing of the neuroforamina bilaterally. No significant impact with the cervical cord. C6-C7: No significant central canal or neural foraminal narrowing. C7-T1: No significant central canal or neural foraminal narrowing. IMPRESSION: 1. Mild broad-based bulging disc C4-C5 and C5-C6. 2. Moderate narrowing of the neuroforamina bilaterally at both levels. 3. No abnormal postcontrast enhancement The above report was generated using voice recognition software. It may contain grammatical, syntax or spelling errors. Electronically signed by: Jonnie Cantu M.D. 02/27/2017 6:50 AM Dictated Date/Time: 02/27/2017 6:46 AM
--- NOTE | 2017-02-27 06:58 | DIAGNOSTIC IMAGING REPORT ---
BRAIN COMBO CLINICAL HISTORY: gait ataxia, possible anterior lobe atrophy due to EtOH abuse COMPARISON STUDY: No previous studies for comparison. TECHNIQUE: Utilizing a 1.5 Leatha magnet and dedicated coil, multiplanar, multiecho imaging of the brain was performed pre and postcontrast administration. IV administration of 6.5 mL of Gadavist contrast was uneventful. FINDINGS: Diffusion images showed no evidence for an acute ischemic event. Several small foci of increased signal within the frontal regions bilaterally. Suggestive of chronic small vessel change. No abnormal postcontrast enhancement. Ventricular system is midline. Internal auditory canals are within normal limits. Sella and parasellar region are unremarkable. Study is again negative for abnormal postcontrast enhancement. IMPRESSION: 1. Mild chronic small vessel change of the frontal regions bilaterally. 2. Otherwise negative study. 3. No abnormal postcontrast enhancement. The above report was generated using voice recognition software. It may contain grammatical, syntax or spelling errors. Electronically signed by: Jonnie Cantu M.D. 02/27/2017 6:57 AM Dictated Date/Time: 02/27/2017 6:51 AM
[2017-02-27 07:19] VITALS: BP 132/82; PULSE 55; TEMP 36.9; O2SAT 99
[2017-02-27 07:24] LABS: BASO % 0.2 %; BASO ABS # 0.01 K/uL (0-0.2); COMPLETE YES; EOS % 3.4 %; IG% 0.2 %; LYMPH % 43.5 %; LYMPH ABS # 2.16 K/uL (1.2-3.4); MEAN CELL VOLUME 93.9 fL (80-100); MEAN CORPUSCULAR HEMOGLOBIN 31.7 pg (25-34); MEAN CORPUSCULAR HGB CONC 33.7 g/dl (32-36); MONO % 15.3 %; NEUT % 37.4 %; PLATELET COUNT 202 K/uL (130-400); RED BLOOD COUNT 4.58 M/uL (4.7-6.1); WHITE BLOOD COUNT 4.96 K/uL (4.8-10.8)
--- NOTE | 2017-02-27 08:24 | DIAGNOSTIC IMAGING REPORT ---
MRI OF THE THORACIC SPINE COMBO CLINICAL HISTORY: Ataxia. Gait instability. COMPARISON STUDY: No priors. TECHNIQUE: MRI of the thoracic spine is performed utilizing various T1 and T2-weighted sequences in the axial and sagittal planes. Contrast-enhanced sequences are acquired following the IV administration of 6.5 cc of Gadavist. The examination is compromised by motion artifact. FINDINGS: Vertebral body height and alignment are maintained throughout the thoracic spine. Anterior osteophytes are seen throughout. No destructive bony lesion is identified. The transverse and spinous processes are intact as visualized. Minimal degenerative disc desiccation is seen throughout the thoracic spine. There is mild loss of height at T11-T12. No large disc herniation is seen and there is no acquired compromise of the central canal. Minimal disc bulge is noted at T11-T12. No significant neural foraminal stenosis is identified. The thoracic spinal cord is normal in morphology and signal intensity. The conus medullaris terminates at the level of L1. No abnormal enhancement is appreciated on the postcontrast images. IMPRESSION: 1. Motion degraded examination. 2. There is no disc herniation or central canal stenosis identified. 3. No destructive bony process is seen. 4. The thoracic spinal cord is normal in morphology and signal intensity. Dictated: 02/27/2017 7:17 AM Transcribed: 02/27/2017 8:23 AM [email or web address] Electronically signed by: Carlton Khan M.D. 02/27/2017 8:25 AM Dictated Date/Time: 02/27/2017 7:17 AM
[2017-02-27] MEDS: THIAMINE HCL 100 MG TAB PO SCH (09:00)
[2017-02-27] MEDS: FoLIC ACID TAB 400 MCG TAB PO SCH (09:00)
[2017-02-27] MEDS: FLINTSTONES COMPLETE CHEWABLE TAB PO SCH (09:01)
[2017-02-27] MEDS: ENOXAPARIN 40 MG/0.4 ML SYR SQ SCH (09:01)
--- NOTE | 2017-02-27 11:34 | Progress Note ---
Internal Med Progress Note Date of Service: Feb 27, 2017. Provider Documentation: SUBJECTIVE: The patient was seen and examined Complains of bilateral leg numbness below the knees Symptoms are worse for the last few days but has been going on for >2 years Clinically better Awaiting Physical Therapy OBJECTIVE: Vital Signs-as noted below Exam: General-No distress at rest Eyes-normal ENT-normal Neck-supple Lungs-Clear to ausucltate bilaterally Heart-Regular,no murmur Abdomen-Benign,no masses,bowel sound present Extremities-No edema Neuro-AAOx3 Impaired sensation bilaterally below knees Lab data as noted below. 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 No B12 and or Folate Deficiency Appreciate ID input Appreciate Neurology input MRIs of the Lumbar,Thoracic ,c spine and Head-negative ,awaiting RPR Symptomatically better Positive Lyme Titer Doubt current symptoms are due to Lyme IgG and IgM-western blot is sent On Ceftriaxone Appreciate ID input Past tobacco abuse Alcohol Abuse DT precautions. DVT prophylaxis with Lovenox subQ. Full code. Vital Signs: Date Time Temp Pulse Resp B/P (MAP) Pulse Ox O2 Delivery O2 Flow Rate FiO2 02/27/17 09:56 Room Air 02/27/17 07:19 36.9 55 18 132/82 (99) 99 Room Air 02/27/17 01:30 98 Room Air 02/26/17 16:16 Room Air 02/26/17 15:15 37.1 66 18 137/87 (104) 98 Room Air Lab Results: Results Past 24 Hours Test 02/26/17 12:10 02/27/17 06:40 Range/Units Urine Color YELLOW Urine Appearance CLEAR CLEAR Urine pH 6.5 4.5-7.5 Urine Specific [place] 1.008 1.000-1.030 Urine Protein NEG NEG Urine Glucose (UA) NEG NEG Urine Ketones NEG NEG Urine Occult Blood NEG NEG Urine Nitrite NEG NEG Urine Bilirubin NEG NEG Urine Urobilinogen NEG NEG Urine Leukocyte Esterase NEG NEG White Blood Count 4.96 4.8-10.8 K/uL Red Blood Count 4.58 4.7-6.1 M/uL Hemoglobin 14.5 14.0-18.0 g/dL Hematocrit 43.0 42-52 % Mean Corpuscular Volume 93.9 80-100 fL Mean Corpuscular Hemoglobin 31.7 25-34 pg Mean Corpuscular Hemoglobin Concent 33.7 32-36 g/dl Platelet Count 202 130-400 K/uL Mean Platelet Volume 10.0 7.4-10.4 fL Neutrophils (%) (Auto) 37.4 % Lymphocytes (%) (Auto) 43.5 % Monocytes (%) (Auto) 15.3 % Eosinophils (%) (Auto) 3.4 % Basophils (%) (Auto) 0.2 % Neutrophils # (Auto) 1.85 1.4-6.5 K/uL Lymphocytes # (Auto) 2.16 1.2-3.4 K/uL Monocytes # (Auto) 0.76 0.11-0.59 K/uL Eosinophils # (Auto) 0.17 0-0.5 K/uL Basophils # (Auto) 0.01 0-0.2 K/uL RDW Standard Deviation 43.6 36.4-46.3 fL RDW Coefficient of Variation 12.7 11.5-14.5 % Immature Granulocyte % (Auto) 0.2 % Immature Granulocyte # (Auto) 0.01 0.00-0.02 K/uL
[2017-02-27 14:47] VITALS: BP 127/84; PULSE 70; TEMP 37; O2SAT 98
--- NOTE | 2017-02-27 15:21 | Neurology Progress Notes ---
Neurology Progress Note Date of Service Feb 27, 2017. Subjective Poornima states for the past 2 years, pain and numbness from the knees to the ankles,feels like pins and needles, no chest pain, no shortness of breath, no headache. He is unstable with walking. 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 he has had numerous tick bites over the years. he is a 6 pack a day beer drinker for many years, and chews snuff. he has not other medical issues. today he states he is doing much better. He is using the walker just for support but does not really need it. He states he is not going to use EtOH any longer and he currently feels great. denies CP, SOB, abdominal pain, headache, swallowing issues, bowel or bladder symptoms, N, V. Objective Date Time Temp Pulse Resp B/P (MAP) Pulse Ox O2 Delivery O2 Flow Rate FiO2 02/27/17 14:47 37.0 70 18 127/84 (98) 98 Room Air 02/27/17 09:56 Room Air 02/27/17 07:19 36.9 55 18 132/82 (99) 99 Room Air 02/27/17 01:30 98 Room Air 02/26/17 16:16 Room Air 02/26/17 15:15 37.1 66 18 137/87 (104) 98 Room Air Last 24 Hours Test 02/27/17 06:40 White Blood Count 4.96 K/uL Red Blood Count 4.58 M/uL Hemoglobin 14.5 g/dL Hematocrit 43.0 % Mean Corpuscular Volume 93.9 fL Mean Corpuscular Hemoglobin 31.7 pg Mean Corpuscular Hemoglobin Concent 33.7 g/dl Platelet Count 202 K/uL Mean Platelet Volume 10.0 fL Neutrophils (%) (Auto) 37.4 % Lymphocytes (%) (Auto) 43.5 % Monocytes (%) (Auto) 15.3 % Eosinophils (%) (Auto) 3.4 % Basophils (%) (Auto) 0.2 % Neutrophils # (Auto) 1.85 K/uL Lymphocytes # (Auto) 2.16 K/uL Monocytes # (Auto) 0.76 K/uL Eosinophils # (Auto) 0.17 K/uL Basophils # (Auto) 0.01 K/uL RDW Standard Deviation 43.6 fL RDW Coefficient of Variation 12.7 % Immature Granulocyte % (Auto) 0.2 % Immature Granulocyte # (Auto) 0.01 K/uL Imaging: MRI brain with and without contrast- . Mild chronic small vessel change of the frontal regions bilaterally. Otherwise negative study. No abnormal postcontrast enhancement. MRI c spine with and without contrast- . Mild broad-based bulging disc C4-C5 and C5-C6. Moderate narrowing of the neuroforamina bilaterally at both levels. No abnormal postcontrast enhancement MRI L spine with and without contrast- Minimal disc bulges L4-L5 and L5-S1 Otherwise negative study no evidence for postcontrast enhancement MRI T spine with and without - . Motion degraded examination. There is no disc herniation or central canal stenosis identified. No destructive bony process is seen. The thoracic spinal cord is normal in morphology and signal intensity. lower ext doppler- No evidence of deep venous thrombus within the bilateral lower extremities. Exam: Physical Exam: Constitutional: appearance nourished, healthy and normal Ears, Nose, Mouth and Throat: mucous membranes moist, no injection and skin normal, eyes normal Cardiovascular: normal S-1 and S-2 and regular rate and rhythm Respiratory: clear to auscultation (CTA) and no rales, rhonchi or wheeze Musculoskeletal: no peripheral edema and good distal pulses Skin: no stigmata of neurocutaneous disease noted and normal and intact Eyes: extraocular muscles intact (EOMI) and pupils equal, round and reactive to light (PERRL) NEUROLOGIC EXAMINATION: Mental status: Alert and interactive Oriented to full date and location Oriented to person Speech fluent with no evidence of aphasia Cranial Nerves smile eye brow raise symmetric, tongue midline Reflexes: Deep tendon reflexes were symmetrical slightly hyporeflexive Coordination: Romberg absent Gait/Stance: Posture normal. Gait normal: with steady with steps, base, turning,tandem gait. able to get out of bed bend bilateral LE on tenderness with palpation Motor: Negative for pronator drift of out stretched arms with eyes closed. Strength: biceps triceps hand card cleaner deltoids 5/5 bilaterally , hip flex ext plantar flex ext 5/5 bilaterally Current Inpatient Medications Medications (Trade) Dose Ordered Sig/Brynn Route Start Time Stop Time Status Last Admin Dose Admin Ceftriaxone Sodium 1 gm/ Dextrose 50 ml @ 100 mls/hr Q24H IV 02/26/17 22:00 8/3/17 21:59 02/27/17 01:07 100 MLS/HR Thiamine HCl (Vitamin B-1 Tab) 100 mg QAM PO 02/27/17 09:00 03/29/17 08:59 02/27/17 09:00 100 MG Multivitamins (Flintstones Complete Tab) 1 tab QAM PO 02/27/17 09:00 03/29/17 08:59 02/27/17 09:01 1 TAB Folic Acid (Folvite Tab) 400 mcg QAM PO 02/27/17 09:00 03/29/17 08:59 02/27/17 09:00 400 MCG Enoxaparin Sodium (Lovenox Inj) 40 mg Q24H SQ 02/26/17 09:00 03/28/17 08:59 02/27/17 09:01 40 MG Acetaminophen (Tylenol Tab) 650 mg Q4H PRN PO 02/26/17 04:00 03/28/17 03:59 02/26/17 06:02 650 MG Lorazepam (Ativan Inj) PRN Dosing -Active Protocol Q1H PRN IV 02/26/17 04:00 03/28/17 03:59 Ibuprofen (Advil Tab) 400 mg Q6H PRN PO 02/26/17 04:00 03/28/17 03:59 Oxycodone/ Acetaminophen (Percocet 5-325mg Tab) 1 tab Q6H PRN PO 02/26/17 04:00 03/12/17 03:59 02/27/17 09:04 1 TAB Ketorolac Tromethamine (Toradol Inj) 30 mg Q6H PRN IV 02/26/17 04:00 03/03/17 03:59 Morphine Sulfate (MoRPHine SULFATE INJ) 4 mg Q6H PRN IV 02/26/17 04:00 03/12/17 03:59 Ondansetron HCl (Zofran Inj) 4 mg Q6H PRN IV 02/26/17 04:00 03/28/17 03:59 Gabapentin (Neurontin Tab) 600 mg Q8H PO 02/27/17 06:00 02/27/17 22:01 02/27/17 13:34 600 MG Gabapentin (Neurontin Tab) 600 mg Q12H PO 02/28/17 10:00 02/28/17 22:01 Gabapentin (Neurontin Tab) 600 mg Q24H PO 03/01/17 22:00 03/01/17 22:01 Gadobutrol (Gadavist) 6.5 mmol UD PRN IV 02/27/17 00:00 03/03/17 00:00 Impression 46 year old male with gait instability Plan 1. watch for DTs -heavy EtOH abuse 2. MRI brain, whole spine with and without contrast to r/o syrinx or other abnormalities- no acute abnormalities 3. EMG - will need an EMG as an outpatient 4. ID for treatment of Lyme - if needed 5. PT/OT for discharge needs 6. if patient was not improving would recommend LP to evaluate CSF. however he is improving doing much better today. 7. would continue the gabapentin as an outpatient is relieving the neuropathic pain 8. ok per neurology stand point to discharge once PT eval and medically stable I have seen and discussed above patient with Dr Conrado Love, neurology Clinically he is now much improved and the pain is now distal over the ankles and feet and described as a cold sensation Gait is mildly dystaxic at most and dtrs etc are unchanged Evidence clinically for neuropathy remains marginal but we will check this with an outpatient emg in several weeks Brain imaging and panspinal imaging essentially normal and specifically reveal no intraparenchymal lesions that would explain his pain or now marginally abnormal gait and we are going to defer on the LP for now. The mahor issue is the status of his lyme disease or rather his positive lyme antibody status and duration of antibiotic rx along with the type of rx ie iv ceftriaxone vs conversion to doxycycline until the western blot is finally back ID to make the call and neurology at this point has litle or no evidence to suggest that he indeed even has symptoms or signs of active or chronic lyme. Conrado Love MD
[2017-02-28 00:25] VITALS: BP 119/82; PULSE 81; O2SAT 99
[2017-02-28 07:40] VITALS: BP 131/86; PULSE 58; TEMP 36.4; O2SAT 99
[2017-02-28] MEDS: FoLIC ACID TAB 400 MCG TAB PO SCH (08:29)
[2017-02-28] MEDS: FLINTSTONES COMPLETE CHEWABLE TAB PO SCH (08:29)
[2017-02-28] MEDS: THIAMINE HCL 100 MG TAB PO SCH (08:29)
[2017-02-28] MEDS: ENOXAPARIN 40 MG/0.4 ML SYR SQ SCH (08:30)
[2017-02-28 09:55] VITALS: O2SAT 98
[2017-02-28] MEDS ORDERED: GABAPENTIN 600MG Q12H DOSE PO SCH (10:00)
--- NOTE | 2017-02-28 11:11 | Progress Note ---
Internal Med Progress Note Date of Service: Feb 28, 2017. Provider Documentation: SUBJECTIVE: The patient was seen and examined Complains of bilateral leg numbness below the knees Symptoms are worse for the last few days but has been going on for >2 years Clinically much better Getting Physical Therapy and doing better Ready to be discharged OBJECTIVE: Vital Signs-as noted below Exam: General-No distress at rest Eyes-normal ENT-normal Neck-supple Lungs-Clear to ausucltate bilaterally Heart-Regular,no murmur Abdomen-Benign,no masses,bowel sound present Extremities-No edema Neuro-AAOx3 Impaired sensation bilaterally below knees Lab data as noted below. 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 No B12 and or Folate Deficiency Appreciate ID input Appreciate Neurology input MRIs of the Lumbar,Thoracic ,c spine and Head-negative ,RPR -nonreactive Symptomatically much better Discharge home today Positive Lyme Titer Doubt current symptoms are due to Lyme IgG and IgM-western blot is sent On Ceftriaxone Appreciate ID input -appreciate input Doxy for 28 days Past tobacco abuse Alcohol Abuse DT precautions. DVT prophylaxis with Lovenox subQ. Full code. Discharge home today Vital Signs: Date Time Temp Pulse Resp B/P (MAP) Pulse Ox O2 Delivery O2 Flow Rate FiO2 02/28/17 09:55 98 Room Air 02/28/17 07:40 36.4 58 18 131/86 (101) 99 Room Air 02/28/17 00:25 81 18 119/82 (94) 99 Room Air 02/28/17 00:00 Room Air 02/27/17 16:38 Room Air 02/27/17 14:47 37.0 70 18 127/84 (98) 98 Room Air
--- NOTE | 2017-02-28 11:15 | Infectious Disease Progress Nt ---
Progress Note Date of Service Feb 28, 2017. Subjective Pt evaluation today including: conversation w/ patient, physical exam, chart review, lab review, review of studies, conversation w/ consultant teacher, review of inpatient medication list Patient states that he is feeling slightly better today. He is able to walk now without extreme pain of the b/l LE. I did discuss this patient with Dr. Bauman who feels that most of his symptoms are related to alcohol abuse. Patient's Lyme screens were positive, and WBC is pending. The patient has been continued on IV Ceftriaxone. WBC count yesterday was 4.96. CRP was <0.29, and ESR was 2. All Other Systems: Reviewed and Negative Medications Current Inpatient Medications Medications (Trade) Dose Ordered Sig/Brynn Route Start Time Stop Time Status Last Admin Dose Admin Ceftriaxone Sodium 1 gm/ Dextrose 50 ml @ 100 mls/hr Q24H IV 02/26/17 22:00 03/07/17 21:59 02/27/17 21:02 100 MLS/HR Thiamine HCl (Vitamin B-1 Tab) 100 mg QAM PO 02/27/17 09:00 03/29/17 08:59 02/28/17 08:29 100 MG Multivitamins (Flintstones Complete Tab) 1 tab QAM PO 02/27/17 09:00 03/29/17 08:59 02/28/17 08:29 1 TAB Folic Acid (Folvite Tab) 400 mcg QAM PO 02/27/17 09:00 03/29/17 08:59 02/28/17 08:29 400 MCG Enoxaparin Sodium (Lovenox Inj) 40 mg Q24H SQ 02/26/17 09:00 03/28/17 08:59 02/27/17 09:01 40 MG Acetaminophen (Tylenol Tab) 650 mg Q4H PRN PO 02/26/17 04:00 03/28/17 03:59 02/26/17 06:02 650 MG Lorazepam (Ativan Inj) PRN Dosing -Active Protocol Q1H PRN IV 02/26/17 04:00 03/28/17 03:59 Ibuprofen (Advil Tab) 400 mg Q6H PRN PO 02/26/17 04:00 03/28/17 03:59 Oxycodone/ Acetaminophen (Percocet 5-325mg Tab) 1 tab Q6H PRN PO 02/26/17 04:00 03/12/17 03:59 02/27/17 09:04 1 TAB Ketorolac Tromethamine (Toradol Inj) 30 mg Q6H PRN IV 02/26/17 04:00 03/03/17 03:59 Morphine Sulfate (MoRPHine SULFATE INJ) 4 mg Q6H PRN IV 02/26/17 04:00 03/12/17 03:59 Ondansetron HCl (Zofran Inj) 4 mg Q6H PRN IV 02/26/17 04:00 03/28/17 03:59 Gabapentin (Neurontin Tab) 600 mg Q12H PO 02/28/17 10:00 02/28/17 22:01 02/28/17 10:47 600 MG Gabapentin (Neurontin Tab) 600 mg Q24H PO 03/01/17 22:00 03/01/17 22:01 Gadobutrol (Gadavist) 6.5 mmol UD PRN IV 02/27/17 00:00 03/03/17 00:00 Objective Vital Signs Date Time Temp Pulse Resp B/P (MAP) Pulse Ox O2 Delivery O2 Flow Rate FiO2 02/28/17 09:55 98 Room Air 02/28/17 07:40 36.4 58 18 131/86 (101) 99 Room Air 02/28/17 00:25 81 18 119/82 (94) 99 Room Air 02/28/17 00:00 Room Air 02/27/17 16:38 Room Air 02/27/17 14:47 37.0 70 18 127/84 (98) 98 Room Air Physical Exam General Appearance: WD/WN, no apparent distress Eyes: normal inspection, sclerae normal ENT: hearing grossly normal Neck: supple, trachea midline Respiratory/Chest: no respiratory distress, no accessory muscle use Cardiovascular: regular rate, rhythm Neurologic/Psychiatric: alert, normal mood/affect Skin: normal color, warm/dry, no rash Assessment and Plan Patient with B/L Neuropathy of the lower extremities from the knees to feet along with positive Lyme screens. Feel that likely his peripheral neuropathic symptoms are alcohol related and not Lyme disease related, but the patient appears to have the history consistent with multiple tick exposures and possible Lyme disease. I feel that he is appropriate to treat though he does not currently have the prodrome of Lyme disease necessarily. If WB is completely negative as outpatient, can D/C treatment. Recommend PO Doxycycline 100 mg BID x 30 days. Will D/C Ceftriaxone and start Doxycycline today. He is otherwise OK for D/C from ID perspective. Thanks PROVIDER ADDENDUM: Patient reviewed with MARIA DE JESUS. agree with above assessment.
[2017-02-28 11:21] VITALS: BP 131/86; PULSE 58; TEMP 36.4; O2SAT 98
[2017-02-28] MEDS ORDERED: THM100 PO (13:04)
[2017-02-28] MEDS ORDERED: DXY100 PO (13:04)
[2017-02-28] MEDS ORDERED: FLV400 PO (13:04)
[2017-02-28] MEDS ORDERED: NRN600 PO (13:04)
[2017-02-28] MEDS ORDERED: LCTX PO (13:04)
--- NOTE | 2017-02-28 13:08 | Discharge Instructions ---
Discharge Instructions Date of Service Feb 28, 2017. Admission Reason for Admission: Neuropathy Discharge Discharge Diagnosis / Problem: Peripheral Neuropathy,Alcohol abuse,Lyme disease Discharge Goals Goal(s): Prevent Disease Progression Activity Recommendations Activity Limitations: resume your previous activity . Instructions / Follow-Up Instructions / Follow-Up Please make an appointment with your PCP in 1week.May need to have follow up with Neurology and ID .Please attend AA meeting and take precaution to avoid fall Current Hospital Diet Patient's current hospital diet: AHA Diet (Heart Healthy) Discharge Diet Recommended Diet: AHA Diet (Heart Healthy) Pending Studies Studies pending at discharge: no Medical Emergencies . Who to Call and When: Medical Emergencies: If at any time you feel your situation is an emergency, please call 911 immediately. . Non-Emergent Contact Non-Emergency issues call your: Primary Care Provider . Past History Medical & Surgical History: (1) Lower extremity weakness (2) Neuropathy (3) Lyme disease (4) Gait instability (5) Paresthesia of lower extremity . "Provider Documentation" section prepared by Amalia Bauman. . VTE Core Measure Inpt VTE Proph given/why not?: Enoxaparin (Lovenox)SQ
[2017-02-28] MEDS ORDERED: DOXYCYCLINE HYCLATE 100 MG CAP PO SCH (21:00)
--- NOTE | 2017-03-01 08:17 | Discharge Summary ---
Discharge Summary Date of Service Mar 01, 2017. Discharge Summary Admission Date: Feb 26, 2017 at 03:49 Discharge Date: Feb 28, 2017 Discharge Disposition: Home Principal Diagnosis: Peripheral Neuropathy,Alcohol abuse,Lyme disease Secondary Diagnoses/Problems: Please se H&P and Hospital Progress note Consultations: Neurology and ID Medication Reconciliation New Medications: Lactobacillus Acidophilus (Lactinex) Tab 2 TAB PO BID, #90 TAB Doxycycline Hyclate (Doxycycline Hyclate) 100 Mg Cap 100 MG PO BID for 21 Days, #42 CAP Folic Acid (Folic Acid) 400 Mcg Tab 400 MCG PO QAM for 30 Days, #30 TAB Gabapentin (Gabapentin) 600 Mg Tab 600 MG PO UD for 3 Days, #3 TAB 1 po this evening,1 po in AM of 03/01/17 and 1/2 po daily to finish Thiamine HCl (Vitamin B-1) 100 Mg Tab 100 MG PO QAM for 30 Days, #30 TAB Admission Information HPI (per Admitting provider): DATE OF ADMISSION: 02/25/2017 PRIMARY CARE DOCTOR: Dr. Dubois. (Px has not met him.) CHIEF COMPLAINT: Bilateral leg pain, numbness. HISTORY OF PRESENT ILLNESS: History from patient and family. Medical history significant for past tobacco abuse. As per patient, in the last 2 years, pain and numbness from the knees to the ankles, feels like pins and needles, no chest pain, no shortness of breath, no headache. Some pain with walking. No consultations done. Worsening discomfort last few days. Patient has had tick bites before, no previous treatments, no recent rash. Patient brought to Emergency Room. Lyme test found to be abnormal. IV Ceftriaxone given in the Emergency Room. MEDICAL HISTORY: As above. SURGERIES: Wound repair surgery. HOME MEDICATIONS: None. ALLERGIES: No known drug allergies. FAMILY HISTORY: Hypertension. PERSONAL AND SOCIAL HISTORY: Past tobacco abuse, daily alcohol intake/denies abuse. [employer] business. REVIEW OF SYSTEMS: As per HPI. All other ROS negative. PHYSICAL EXAMINATION: VITAL SIGNS: Blood pressure was noted to be 149/87, pulse rate 86, RR 20, temperature 36.8, sats 97 on room air. GENERAL: Noted to be slightly anxious, no respiratory distress. SKIN: Normal color. HEENT: Partial alopecia. [place] palpebral conjunctivae. Dry mucosa. NECK: No JVD. Supple CHEST: Clear to auscultation. HEART: Regular rate and rhythm. ABDOMEN: Soft. EXTREMITIES: No edema, tenderness. NEUROLOGIC: No gross focality. LABS: Hemoglobin 13.9, hematocrit 40, white cell count 5.6, platelets 220. Sodium 141, potassium 3.5, chloride 107, CO2 20, BUN 10, creatinine 0.8, glucose was 100. ETOH level 86. Lyme test, IgG, IgM antibody positive. CT head, no acute pathology as per initial read . ASSESSMENT: 1. Worsening lower extremity pain of two years' duration likely peripheral neuropathy on basis px description ? secondary to alcohol, ? infection (? Lyme, although lower extremity involvement somewhat uncommon for Lyme neuropathy) Rule out deep venous thrombosis. 2. Abnormal Lyme test. 3. Past tobacco abuse. 4. daily ETOH intake PLAN: [facility] Neuropathy workup Neurology consult RE lower extremity numbness, pain. LE dopplers ro DVT. ID consult, abnormal Lyme. IV ceftriaxone for now for abn Lyme test. DT precautions. DVT prophylaxis with Lovenox subQ. Full code. Hospital Course Bilateral Legs Numbness Worsening lower extremity pain of two years' duration Likely peripheral neuropathy secondary to alcohol,doubt any infective process Lyme, although lower extremity involvement somewhat uncommon for Lyme neuropathy IV ceftriaxone for now for abn Lyme test. No B12 and or Folate Deficiency Appreciate ID input Appreciate Neurology input MRIs of the Lumbar,Thoracic ,c spine and Head-negative ,RPR -nonreactive Symptomatically much better Discharge home today Positive Lyme Titer Doubt current symptoms are due to Lyme IgG and IgM-western blot is sent On Ceftriaxone Appreciate ID input -appreciate input Doxy for 28 days Past tobacco abuse Alcohol Abuse DT precautions. DVT prophylaxis with Lovenox subQ. Full code. Discharge home today Total time spent on discharge = 35 minutes This includes examination of the patient, discharge planning, medication reconciliation, and communication with other providers. Discharge Instructions Date of Service Feb 28, 2017. Admission Reason for Admission: Neuropathy Discharge Discharge Diagnosis / Problem: Peripheral Neuropathy,Alcohol abuse,Lyme disease Discharge Goals Goal(s): Prevent Disease Progression Activity Recommendations Activity Limitations: resume your previous activity . Instructions / Follow-Up Instructions / Follow-Up Please make an appointment with your PCP in 1week.May need to have follow up with Neurology and ID .Please attend AA meeting and take precaution to avoid fall Current Hospital Diet Patient's current hospital diet: AHA Diet (Heart Healthy) Discharge Diet Recommended Diet: AHA Diet (Heart Healthy) Pending Studies Studies pending at discharge: no Medical Emergencies . Who to Call and When: Medical Emergencies: If at any time you feel your situation is an emergency, please call 911 immediately. . Non-Emergent Contact Non-Emergency issues call your: Primary Care Provider . Past History Medical & Surgical History: (1) Lower extremity weakness (2) Neuropathy (3) Lyme disease (4) Gait instability (5) Paresthesia of lower extremity . "Provider Documentation" section prepared by Amalia Bauman. . VTE Core Measure Inpt VTE Proph given/why not?: Enoxaparin (Lovenox)SQ <Electronically signed by Amalia Baumna M.D.> Signed: 02/28/17 9739 Additional Copies To Denny Dubois D.O.
[2017-03-01] MEDS ORDERED: GABAPENTIN 600MG X1 DOSE PO SCH (22:00)
[2017-03-02 09:19] LABS: 18KDIGG BAND REACTIVE (NONREACTIVE); 23KDIGG BAND REACTIVE (NONREACTIVE); 23KDIGM BAND REACTIVE (NONREACTIVE); 28KDIGG BAND REACTIVE (NONREACTIVE); 30KDIGG BAND REACTIVE (NONREACTIVE); 39KDIGG BAND REACTIVE (NONREACTIVE); 39KDIGM BAND NONREACTIVE (NONREACTIVE); 41KDIGG BAND REACTIVE (NONREACTIVE); 41KDIGM BAND REACTIVE (NONREACTIVE); 45KDIGG BAND REACTIVE (NONREACTIVE); 58KDIGG BAND REACTIVE (NONREACTIVE); 66KDIGG BAND REACTIVE (NONREACTIVE); 93KDIGG BAND REACTIVE (NONREACTIVE)
== END 2017-02-28 15:16 | disposition home or self-care (01) | DRG 74 ==
LOC: C.EDB 22:24 → C.MS2W 02-26 03:49 → ENRESERV 02-26 04:20
PROVIDERS: ADMIT Internal Medicine; ATTEND Internal Medicine
DX: G62.9 Polyneuropathy, unspecified (principal); A69.20 Lyme disease, unspecified; F10.10 Alcohol abuse, uncomplicated; R26.89 Other abnormalities of gait and mobility; R20.2 Paresthesia of skin; Z87.891 Personal history of nicotine dependence